=== PATIENT | female | born 1950 | race Caucasian/White ===

== ENCOUNTER 2017-01-27 10:51 | Emergency (ER) | payer OTHER ==
[~2017-01-27 10:51] MED LIST: AMPYRA10 MG PO; ASPIR 8181 MG PO; BACLOFEN10 MG PO; CELEXA20 MG PO; CIPRO250 MG PO; COLACE100 MG PO; CYANOCOBAL1000 MCG/M IM; DAILY VITE1 EACH PO; HIPREX1000 MG PO; HYDROCHLOROTHIA25 MG PO; LACTULOSE20 GM/30 M PO; NEURONTIN300 MG PO; NORVASC2.5 MG PO; OXYBUTYNIN CHLOR5 MG PO; PROBIOTIC1 EAC2 PO; TOFRANIL25 MG PO
== END 2017-01-27 12:46 | disposition home or self-care (01) ==
LOC: ER 10:51
DX: R53.1 Weakness (principal); R10.9 Unspecified abdominal pain; G35 Multiple sclerosis; I10 Essential (primary) hypertension; F41.9 Anxiety disorder, unspecified; F32.9 Major depressive disorder, single episode, unspecified; Z90.49 Acquired absence of other specified parts of digestive tract; Z88.5 Allergy status to narcotic agent; Z79.82 Long term (current) use of aspirin; Z79.899 Other long term (current) drug therapy
CPT/HCPCS: 36415; 96361; 96374